=== PATIENT | male | born 1950 ===

== ENCOUNTER 2017-12-24 16:28 | Outpatient (CLI) | payer MEDICARE, OTHER ==
[2017-12-24 16:55] LABS: BASOPHILS % (AUTO) 0.3 %; EOSINOPHILS % (AUTO) 0.2 %; HGB - HEMOGLOBIN 14.2 g/dL (14.0-18.0); LYMPHOCYTES % (AUTO) 16.4 %; MEAN CORPUSCULAR HEMOGLOBIN 29.7 pg (27.0-31.0); MEAN CORPUSCULAR HGB CONC 32.3 g/dL (32.0-36.0); MEAN CORPUSCULAR VOLUME 92.2 fL (80.0-94.0); MEAN PLATELET VOLUME 8.1 fL (7.4-11.4); MONOCYTES % (AUTO) 6.9 %; NEUTROPHILS % (AUTO) 76.2 %; PLT - PLATELET COUNT 291 10^3/uL (130-450); RED BLOOD COUNT 4.79 10^6/uL (4.70-6.10); RED CELL DISTRIBUTION WIDTH 15.8 % (12.0-15.0); WHITE BLOOD COUNT 19.6 x10^3/uL (4.8-10.8)
[2017-12-24 17:06] LABS: ABNORMAL LYMPHS % (MANUAL) 0 %; ALBUMIN 4.1 g/dL (3.2-5.5); ALBUMIN/GLOBULIN RATIO 1.7 (1.0-2.2); BAND NEUTROPHILS % (MANUAL) 0 %; BILIRUBIN,TOTAL 0.8 mg/dL (0.2-1.0); CALCIUM 8.9 mg/dL (8.5-10.3); CREATININE 1.5 mg/dL (0.6-1.2); TOTAL PROTEIN 6.5 g/dL (6.7-8.2)
[2017-12-24 17:25] LABS: EOSINOPHILS # (MANUAL) 0.2 10^3/uL (0-0.7); LYMPHOCYTES # (MANUAL) 1.4 10^3/uL (1.5-3.5); LYMPHOCYTES % (MANUAL) 7 %; MONOCYTES # (MANUAL) 2.2 10^3/uL (0.0-1.0); NEUTROPHILS # (MANUAL) 15.9 10^3/uL (1.5-6.6); NEUTROPHILS % (MANUAL) 81 %
[2017-12-24 17:28] LABS: PLATELET ESTIMATE, MANUAL NORMAL (130-450,000) (NORMAL); PLATELET MORPHOLOGY NORMAL APPEARANCE (NORMAL); RBC MORPHOLOGY (MULTIPLE) NORMAL APPEARANCE (NORMAL)
== END 2017-12-24 16:29 | disposition home or self-care (01) ==
LOC: LAB 16:28
PROVIDERS: ATTEND Dermatology
DX: L88 Pyoderma gangrenosum (principal)
CPT/HCPCS: 36415; 80053; 85025

== ENCOUNTER 2020-08-27 09:54 | Outpatient (CLI) | payer MEDICARE, OTHER ==
--- NOTE | 2020-08-27 18:26 | DEXA Report ---
PROCEDURE: Dexa Spine and/or Hip INDICATIONS: OSTEOPENIA TECHNIQUE: Dual energy x-ray absorptiometry (DXA) was performed on a Glympse System. Regions measur ed are the AP Spine, femoral neck, and if needed forearm. COMPARISON: None. FINDINGS: Lumbar Spine: Bone Mineral Density 1.178 g/cm/cm,T score -0.3, normal Left Hip: Bone Mineral Density 1.143 g/cm/cm,T score 0.3, normal Left Femoral Neck: Bone Mineral Density 0.961 g/cm/cm, T score -0.8, normal (T score greater or equal to -1.0: NORMAL) (T score from -1.1 to -2.4: OSTEOPENIA) (T score less than or equal to -2.5 to: OSTEOPOROSIS) Impression: Normal bone mineral density. Patients with diagnosis of osteoporosis or osteopenia should have regular bone mineral density assess ment. For those eligible for Medicare, routine testing is allowed once every 2 years. Testing frequ ency can be increased for patients who have rapidly progressing disease or for those who are receivin g medical therapy to restore bone mass. Reviewed by: Jesusita Lawson MD, PhD on 08/27/2020 5:25 PM MIRIAM Approved by: Jesusita Lawson MD, PhD on 08/27/2020 5:25 PM MIRIAM Station ID: [id number]
== END 2020-08-27 09:55 | disposition home or self-care (01) ==
LOC: DI 09:54
PROVIDERS: ATTEND Internal Medicine
DX: M85.89 Other specified disorders of bone density and structure, multiple sites (principal)
CPT/HCPCS: 77080

== ENCOUNTER 2022-03-27 10:02 | Day surgery (SDC) | payer MEDICARE, OTHER ==
[2022-03-27] MEDS ORDERED: LACTATED RINGERS 1,000 ML IV ONE (10:06)
[2022-03-27] MEDS ORDERED: PROPOFOL 500 MG/50 ML 500 MG/50 ML VIAL ONE (10:29)
[2022-03-27] MEDS ORDERED: MIDAZOLAM 2 MG/2 ML VIAL ONE (10:32)
--- NOTE | 2022-03-27 10:42 | ANESTHESIA ---
Pre-Anesthesia VS, & Labs - Diagnosis screening exam - Procedure colonoscopy Vital Signs: Temp Pulse Resp BP Pulse Ox 36.6 C 79 16 159/77 H 97 03/27/22 10:12 03/27/22 10:12 03/27/22 10:12 03/27/22 10:12 03/27/22 10:12 Height: 5 ft 8 in Weight (kg): 103.8 kg Body Mass Index: 34.7 BMI Classification: Obese - NPO >8 hours Home Medications and Allergies Home Medications: Ambulatory Orders inFLIXimab [Remicade] 1 vial IV DAILY 03/26/22 Lisinopril 20 mg PO DAILY 03/21/13 Naproxen Sodium [Aleve] 220 mg PO DAILY PRN 10/10/13 Multivitamin [Multi-Vitamin Daily] 1 each PO DAILY 11/16/13 [place]-3 Fatty Acids [Fish Oil] 2 cap PO DAILY 02/04/15 amLODIPine [Norvasc] 10 mg PO DAILY 04/11/21 inFLIXimab [Remicade] 1 vial IV DAILY 03/26/22 Allergies/Adverse Reactions: Allergies Allergy/AdvReac Type Severity Reaction Status Date / Time diphenhydramine AdvReac Anxiety Verified 03/26/22 12:38 Anes History & Medical History - Medical History Cardiovascular: reports: Hypertension Pulmonary: reports: None Gastrointestinal: reports: None Urinary: reports: None Neuro: reports: None Musculoskeletal: reports: Osteoarthritis, Other (pyodermagangrangranosm uses remicade) Endocrine/Autoimmune: reports: None Blood Disorders: reports: None Skin: reports: Other Smoking Status: Never smoker Psychosocial: reports: No issues indicated History of Cancer?: No - Surgical History General: reports: Colonoscopy Exam General: Alert, Oriented x3, Cooperative, No acute distress Dental: WNL, Other (chipped front incissor) Mouth Openin Fingerbreadth Mallampati classification: II Thyromental Distance: 4-6 cm Mental/Cognitive Status: Alert/Oriented X3, Normal for patient Plan Anesthesia Type: General, Total IV Consent for Procedure(s) Verified and Reviewed: Yes Code Status: Attempt Resuscitation ASA classification: 2-Mild systemic disease Is this case an emergency?: No
--- NOTE | 2022-03-27 11:18 | HISTORY & PHYSICAL EXAMINATION ---
Chief Complaint - Chief Complaint Chief Complaint: here for colon cancer screening History of Present Illness - History Obtained From Records Reviewed: yes History obtained from: pt Exam Limitations: none - History of Present Illness HPI Comment/Other: here for colon cancer screening. no problems History - Past Medical History Cardiovascular: reports: Hypertension Respiratory: reports: None Neuro: reports: None Endocrine/Autoimmune: reports: None GI: reports: None : reports: None HEENT: reports: None Musculoskeletal: reports: Osteoarthritis, Other (pyodermagangrangranosm uses remicade) Derm: reports: Other MRSA Hx?: No - Past Surgical History General: reports: Colonoscopy Meds/Allgy - Home Medications Home Medications: Ambulatory Orders Medication Instructions Recorded Confirmed Lisinopril 20 mg PO DAILY 03/21/13 03/26/22 Naproxen Sodium [Aleve] 220 mg PO DAILY PRN 10/10/13 03/26/22 Multivitamin [Multi-Vitamin Daily] 1 each PO DAILY 11/16/13 03/26/22 [place]-3 Fatty Acids [Fish Oil] 2 cap PO DAILY 02/04/15 03/26/22 amLODIPine [Norvasc] 10 mg PO DAILY 04/11/21 03/26/22 inFLIXimab [Remicade] 1 vial IV DAILY 03/26/22 03/26/22 - Allergies Allergies/Adverse Reactions: Allergies Allergy/AdvReac Type Severity Reaction Status Date / Time diphenhydramine AdvReac Anxiety Verified 03/26/22 12:38 Review of Systems - Other Findings Other Findings: 10 pt ros as above otherwise unremarkable Exam - Vital Signs Reviewed Vital Signs: Yes Vital Signs: Vital Signs x48h Temp Pulse Resp BP Pulse Ox 03/27/22 10:12 36.6 C 79 16 159/77 H 97 - Physical Exam General Appearance: positive: No acute distress, Alert Eyes Bilateral: positive: PERRL, EOMI ENT: positive: No signs of dehydration Neck: positive: No JVD Respiratory: positive: No respiratory distress, Breath sounds nml Cardiovascular: positive: Regular rate & rhythm Abdomen: positive: Non-tender, No distention Neurologic/Psychiatric: positive: Oriented x3 Conclusion/Plan - Problem List (1) Colon cancer screening Conclusion/Plan: plan colonoscopy. parq held and consent obtained
[2022-03-27] MEDS ORDERED: LACTATED RINGERS 500 ML IV ONE (12:05)
[2022-03-27 12:34] VITALS: BP 141/85
--- NOTE | 2022-03-27 13:50 | ANESTHESIA POST OP EVALUATION ---
Anesthesia Post Eval - Post Anesthesia Eval Vitals: Last Vital Signs Temp 36.7 C 03/27/22 12:33 Pulse 73 03/27/22 12:33 Resp 20 03/27/22 12:33 BP 141/85 H 03/27/22 12:33 Pulse Ox 99 03/27/22 12:33 CV Function Including HR & BP: Stable Pain Control: Satisfactory Nausea & Vomiting: Negative Mental Status: Baseline Respiratory Status: Airway Patent Hydration Status: Satisfactory Anesthesia Complications: None
== END 2022-03-27 10:03 | disposition home or self-care (01) ==
LOC: SDS 10:02
PROVIDERS: ATTEND Surgery
DX: Z12.11 Encounter for screening for malignant neoplasm of colon (principal); K57.30 Diverticulosis of large intestine without perforation or abscess without bleeding; E66.9 Obesity, unspecified; Z68.34 Body mass index [BMI] 34.0-34.9, adult
CPT/HCPCS: G0121; J7120

== ENCOUNTER 2024-05-27 08:10 | Inpatient (IN) | payer MEDICARE, OTHER ==
--- NOTE | 2024-05-27 08:42 | ED Physician Documentation ---
PD HPI FOCAL NEURO - Stated complaint Stated Complaint: RT SIDE WEAK/NOT WORKING - Chief complaint Chief Complaint: Neuro - History obtained from History obtained from: Patient, Family (spouse) - History of Present Illness Timing - onset: Today (awoke with right arm and leg weakness, was able to limp/to bathroom, leg barely holding him up. Arm fumbly and could not lift it to level of his face.) Timing - details: Abrupt onset, Still present (less severeity on ED arrival, with able to lift arm in air to level of face, leg off the gurney for couple of seconds.) Review of Systems Constitutional: reports: Chills (last evening briefly). denies: Fever Eyes: denies: Loss of vision, Decreased vision Nose: denies: Rhinorrhea / runny nose, Congestion Throat: denies: Sore throat Cardiac: denies: Chest pain / pressure Respiratory: denies: Cough GI: denies: Nausea, Vomiting, Diarrhea Skin: denies: Rash, Lesions Musculoskeletal: reports: Neck pain (left neck last evening.) PD PAST MEDICAL HISTORY - Past Medical History Past Medical History: Yes Cardiovascular: Hypertension Neuro: None Musculoskeletal: Osteoarthritis, Other - Past Surgical History Past Surgical History: No - Present Medications Home Medications: Ambulatory Orders Medication Instructions Recorded Confirmed Naproxen Sodium [Aleve] 220 mg PO DAILY PRN 10/10/13 12/17/22 Multivitamin [Multi-Vitamin Daily] 1 each PO DAILY 11/16/13 12/17/22 amLODIPine [Norvasc] 10 mg PO DAILY 04/11/21 12/17/22 inFLIXimab [Remicade] 1 vial IV MAINTENANCE.IV 03/26/22 12/17/22 Calcium Carb/Mag Ox/Zinc Sulf 1 tab PO DAILY 07/03/22 12/17/22 [[id number] 334-134-5 mg Tab] Cholecalciferol (Vitamin D3) 125 mcg PO DAILY 07/03/22 12/17/22 [D3-5000] Losartan Potassium 50 mg PO DAILY 05/27/24 05/27/24 - Allergies Allergies/Adverse Reactions: Allergies Allergy/AdvReac Type Severity Reaction Status Date / Time diphenhydramine AdvReac Anxiety Verified 05/27/24 08:42 - Social History Does the pt smoke?: No Smoking Status: Never smoker PD ED PE NORMAL - Vitals Vital signs reviewed: Yes - General General: Alert and oriented X 3, Well developed/nourished - HEENT HEENT: Atraumatic - Neck Neck: No bruit - Cardiac Cardiac: RRR, No murmur - Respiratory Respiratory: Clear bilaterally - Abdomen Abdomen: Soft, Non tender - Derm Derm: Normal color, Warm and dry NIHSS - Level of Consciousness Level of consciousness: (0) Alert, Keenly responsive LOC Questions: (0) Answers both Q's correct LOC Commands: (0) Performs both correctly - Gaze Best Gaze: (0) Normal - Visual Visual: (0) No loss - Facial Palsy Facial Palsy: (0) Normal, symmetrical movement - Motor Arms (both separate) Motor Arm (right): (1) Drift Motor Arm (left): (0) No drift - Motor Legs (both separate) Motor Leg (right): (2) Some effort against gravity Motor Leg (left): (0) No drift - Limb Ataxia Limb Ataxia: (2) Present in 2 limbs - Sensory Sensory: (0) Normal - Best Language Best Language: (0) No aphasia - Dysarthria Dysarthria: (0) Normal - Extinction and Inattention (formally neg Extinction and inattention: (0) No abnormality - Total Score/Results Total Score/Result: 5 Results - Vitals Vitals: Vital Signs - 24 hr 05/27/24 05/27/24 05/27/24 08:19 09:05 09:30 Temperature 36.3 C L Heart Rate 107 H 101 H 100 Respiratory 16 22 21 Rate Blood Pressure 150/84 H 132/92 H 135/82 H O2 Saturation 97 95 97 05/27/24 10:00 Temperature Heart Rate 94 Respiratory 20 Rate Blood Pressure 124/79 O2 Saturation 98 Oxygen O2 Source Room air - EKG (time done) 08:32 EKG releavant findings:: EKG personally interpreted by author of this note. Relevant findings are: Rate: Rate (enter#) (100) Rhythm: NSR [place]: Normal Intervals: Normal DE, RBBB Ischemia: Normal ST segments. No: ST elevation c/w ischemia, ST depression - Labs Labs: Laboratory Tests 05/27/24 05/27/24 05/27/24 08:30 08:30 08:30 WBC 20.6 H RBC 5.55 Hgb 16.7 Hct 50.5 MCV 91.0 MCH 30.1 MCHC 33.1 RDW 13.2 Plt Count 158 MPV 12.6 H Neut # (Auto) 18.2 H Lymph # (Auto) 1.0 L [place] # (Auto) 1.2 H Eos # (Auto) 0.0 Baso # (Auto) 0.1 Absolute Nucleated RBC 0.00 Nucleated RBC % 0.0 Manual Slide Review Indicated RBC Morph Micro Appear 1+ ANISOCYTOSIS PT 12.2 INR 1.1 Sodium 134 L Potassium 4.1 Chloride 102 Carbon Dioxide 24 Anion Gap 8.0 BUN 17 Creatinine 1.2 Estimated GFR (MDRD) 59 L Glucose 144 H Calcium 9.6 Magnesium 1.8 Total Bilirubin 1.2 H AST 21 ALT 22 Alkaline Phosphatase 51 Total Protein 7.3 Albumin 4.5 Globulin 2.8 Albumin/Globulin Ratio 1.6 Lipase 15 Nasal Adenovirus (PCR) Nasal B. parapertussis DNA (PCR) Nasal Coronavir 229E PCR Nasal Coronavir HKU1 PCR Nasal Coronavir NL63 PCR Nasal Coronavir OC43 PCR Nasal Enterovir/Rhinovir PCR Nasal Influenza B PCR Nasal Influenza A PCR Nasal Parainfluen 1 PCR Nasal Parainfluen 2 PCR Nasal Parainfluen 3 PCR Nasal Parainfluen 4 PCR Nasal RSV (PCR) Nasal B.pertussis DNA PCR Nasal C.pneumoniae (PCR) Dc Human Metapneumo PCR Nasal M.pneumoniae (PCR) Nasal SARS-CoV-2 (PCR) 05/27/24 09:09 WBC RBC Hgb Hct MCV MCH MCHC RDW Plt Count MPV Neut # (Auto) Lymph # (Auto) [place] # (Auto) Eos # (Auto) Baso # (Auto) Absolute Nucleated RBC Nucleated RBC % Manual Slide Review RBC Morph Micro Appear PT INR Sodium Potassium Chloride Carbon Dioxide Anion Gap BUN Creatinine Estimated GFR (MDRD) Glucose Calcium Magnesium Total Bilirubin AST ALT Alkaline Phosphatase Total Protein Albumin Globulin Albumin/Globulin Ratio Lipase Nasal Adenovirus (PCR) NOT DETECTED Nasal B. parapertussis DNA (PCR) NOT DETECTED Nasal Coronavir 229E PCR NOT DETECTED Nasal Coronavir HKU1 PCR NOT DETECTED Nasal Coronavir NL63 PCR NOT DETECTED Nasal Coronavir OC43 PCR NOT DETECTED Nasal Enterovir/Rhinovir PCR NOT DETECTED Nasal Influenza B PCR NOT DETECTED Nasal Influenza A PCR NOT DETECTED Nasal Parainfluen 1 PCR NOT DETECTED Nasal Parainfluen 2 PCR NOT DETECTED Nasal Parainfluen 3 PCR NOT DETECTED Nasal Parainfluen 4 PCR NOT DETECTED Nasal RSV (PCR) NOT DETECTED Nasal B.pertussis DNA PCR NOT DETECTED Nasal C.pneumoniae (PCR) NOT DETECTED Dc Human Metapneumo PCR NOT DETECTED Nasal M.pneumoniae (PCR) NOT DETECTED Nasal SARS-CoV-2 (PCR) NOT DETECTED - Rads (name of study) head CT/CT-A Relevant Findings:: Prelim report reviewed, Discussed with rads (no ICH nor mass effect. Angio showing stenosis right 60% ICA, 90% left ICA. left vertebral presu med occluded as not visualized, right patent. Posterior circulation appears okay above [place]. ) PD Medical Decision Making - ED course Complexity details: reviewed results (acute CT head without acute findings. Angio showing 90% stenosis left ICA, 60% right. Left vertebral artery occluded, unknown chronicity. Posterior flow good through [place]. ), re- evaluated patient (he is having some improvement in degree of weakness in right side but still present. Given duration of symptoms at least 4-5 hours, presume l ikely true CVA and not TIA. BP is in okay range. After review of the CT/CTA, I did give pt Aspirin and Plavix and Atorvastatin. ), considered differential (awoke at 6 am with noting right side arm and leg weakness without numbness, and no facial weakness. Able to talk clearly. No visual change. ), d/w patient, d/w senior staff consultant (Telestroke neurologist: refer to his note. He states the patient is not TNK candidate due to timing of "wake up" symptoms, so too long prior. And no LVO so not interventional acutely. There is 90% stenosis, which will want Vascular Surgery referral urgently (within 1-2 weeks). ), other (discussed with hospitalist who will admit the patient. ) Departure - Departure Disposition: 66 [facility] DC/Xfer Clinical Impression: Right sided weakness, Carotid stenosis, left Condition: Stable Record reviewed to determine appropriate education?: Yes Discharge Date/Time: 05/27/24 11:47
--- NOTE | 2024-05-27 08:55 | CT Report ---
PROCEDURE: Head W/O Stroke Protocol INDICATIONS: right weakness awoke this morning TECHNIQUE: Noncontrast 4.5 mm thick angled axial sections acquired from the foramen magnum to the vertex, with c oronal reformats. For radiation dose reduction, the following was used: automated exposure control, adjustment of mA and/or kV according to patient size. COMPARISON: None. FINDINGS: Image quality: Excellent. CSF spaces: Basal cisterns are patent. No extra-axial fluid collections. Ventricles are normal in size and shape. Brain: No midline shift. No intracranial masses or hemorrhage. Gordon-white matter interface is norm al. Skull and face: Calvarium and visualized facial bones are intact, without suspicious lesions. Sinuses: Visualized sinuses and mastoids are clear. IMPRESSION: No acute intracranial pathology. No contraindication Findings were discussed with ordering provider on 05/27/2024 at 8:51 AM. This study fulfills neurological imaging criteria for inclusion or exclusion of acute stroke therapie s based on available published neurological imaging guidelines. Reviewed by: Leonard Brady MD on 05/27/2024 8:54 AM PDT Approved by: Leonard Brady MD on 05/27/2024 8:54 AM PDT Station ID: [id number]
[2024-05-27 09:04] LABS: BASOPHILS # (AUTO) 0.1 10^3/uL (0.0-0.1); BASOPHILS % (AUTO) 0.3 %; HCT - HEMATOCRIT 50.5 % (42.0-52.0); HGB - HEMOGLOBIN 16.7 g/dL (14.0-18.0); LYMPHOCYTES % (AUTO) 4.7 %; MEAN CORPUSCULAR HEMOGLOBIN 30.1 pg (27.0-31.0); MEAN CORPUSCULAR HGB CONC 33.1 g/dL (32.0-36.0); MEAN PLATELET VOLUME 12.6 fL (7.4-11.4); MONOCYTES # (AUTO) 1.2 10^3/uL (0.0-1.0); MONOCYTES % (AUTO) 5.9 %; NEUTROPHILS # (AUTO) 18.2 10^3/uL (1.5-6.6); NEUTROPHILS % (AUTO) 88.7 %; PLT - PLATELET COUNT 158 10^3/uL (130-450); RED BLOOD COUNT 5.55 10^6/uL (4.70-6.10); RED CELL DISTRIBUTION WIDTH 13.2 % (12.0-15.0); WHITE BLOOD COUNT 20.6 x10^3/uL (4.8-10.8)
[2024-05-27] MEDS ORDERED: iohexoL-300 100 ML VIAL ONE (09:07)
[2024-05-27 09:10] LABS: SLIDE REVIEW? Indicated
[2024-05-27 09:13] LABS: INR 1.1 (0.8-1.2); PT - PROTHROMBIN TIME 12.2 secs (9.9-12.6)
--- NOTE | 2024-05-27 09:22 | CT Report ---
PROCEDURE: Angio Head/Neck INDICATIONS: right weakness awoke this morning TECHNIQUE: After the administration of intravenous contrast, 1 mm thick sections acquired from the aortic arch t hrough the [place]. 3-dimensional wjmvdwt-lsukycatu-ovevxpkwfv (MIP) and/or volume renderin g reformats were acquired of the central intracranial vasculature and neck separately. For radiation dose reduction, the following was used: automated exposure control, adjustment of mA and/or kV acco rding to patient size. CONTRAST: 80ml omni 300 COMPARISON: None. FINDINGS: Image quality: Diagnostic. HEAD CT: CSF Spaces: Basal cisterns are patent. No extra-axial fluid collections. Ventricles are normal in size and shape. Brain: No significant abnormality is seen for scanning technique. Skull and face: Calvarium and visualized facial bones appear intact, without suspicious lesions. Sinuses: Visualized sinuses and mastoids are clear. HEAD CT ANGIOGRAPHY: Anterior circulation: Intracranial internal carotid arteries are normal in size and flow. The flow within the paired anterior cerebral arteries is normal and symmetric. The flow within the middle cer ebral arteries is normal and symmetric. The anterior communicating artery is seen. No aneurysms are seen. Posterior circulation: Visualized portions of the right distal vertebral artery is within normal brito its and form a normal appearing basilar artery. Flow within the posterior cerebral arteries is gareth l and symmetric. No aneurysms are seen. NECK CT ANGIOGRAPHY: Carotid system: The great vessels demonstrate a conventional anatomy as they arise from the aortic a rch. The origins of the common carotid arteries appear patent. The common carotid arteries demonstr ate normal caliber and courses. Moderate atherosclerotic calcifications are noted involving bilateral carotid bifurcations and origins of bilateral internal carotid arteries with high-grade near 90% patricia nosis involving origin of left internal carotid artery and 60% stenosis involving proximal right inte rnal carotid artery. Posterior circulation: The origin of right vertebral artery appears patent. There is suggestion of oc clusion of left internal carotid artery at its origin with nonvisualization of normal left vertebral artery. The more superior extracranial portions of right vertebral artery also demonstrate normal cou rses and calibers. There is a normal appearing basilar artery. Soft tissues: Visualized neck soft tissues demonstrate no suspicious abnormalities. Bones: No suspicious bony lesions. Visualized cervical spine appears normally aligned. IMPRESSION: 1. No hemodynamically significant stenosis or aneurysm is seen in the intracranial circulation. 2. Moderate atherosclerotic disease involving bilateral carotid bifurcation and proximal internal car otid arteries with near 90% stenosis involving origin of left internal carotid artery and 60% stenosi s involving proximal right internal carotid artery. 3. Suggestion of occlusion of left vertebral artery at its origin with patent and normal-appearing ri ght vertebral artery. The estimate of stenosis included in the report of the imaging study was calculated using the NASCET method Reviewed by: Leonard Brady MD on 05/27/2024 9:21 AM PDT Approved by: Leonard Brady MD on 05/27/2024 9:21 AM PDT Station ID: [id number]
[2024-05-27 09:23] LABS: ALBUMIN 4.5 g/dL (3.2-5.5); ALBUMIN/GLOBULIN RATIO 1.6 (1.0-2.2); BILIRUBIN,TOTAL 1.2 mg/dL (0.2-1.0); CALCIUM 9.6 mg/dL (8.5-10.3); CREATININE 1.2 mg/dL (0.6-1.3); MAGNESIUM 1.8 mg/dL (1.7-2.3); POTASSIUM 4.1 mmol/L (3.5-4.5); TOTAL PROTEIN 7.3 g/dL (6.4-8.9)
[2024-05-27] MEDS: ASPIRIN CHEW 81 MG TABLET PO STA (09:41)
[2024-05-27 09:50] LABS: RBC MORPHOLOGY (MULTIPLE) 1+ ANISOCYTOSIS (NORMAL)
[2024-05-27 10:19] LABS: B. PARAPERTUSSIS- RESP PCR PAN NOT DETECTED; B. PERTUSSIS- RESP PCR PANEL NOT DETECTED; C. PNEUMONIAE- RESP PCR PANEL NOT DETECTED; CORONAVIRUS 229E-RESP PCR NOT DETECTED; CORONAVIRUS HKU1-RESP PCR NOT DETECTED; CORONAVIRUS NL63-RESP PCR NOT DETECTED; CORONAVIRUS OC43-RESP PCR NOT DETECTED; HUMAN METAPNEUMOVIRUS NOT DETECTED; INFLUENZA A- RESP PCR PANEL NOT DETECTED; INFLUENZA B - RESP PCR PANEL NOT DETECTED; M. PNEUMONIAE- RESP PCR PANEL NOT DETECTED; PARAINFLUENZA VIRUS 1 NOT DETECTED; PARAINFLUENZA VIRUS 2 NOT DETECTED; PARAINFLUENZA VIRUS 3 NOT DETECTED; PARAINFLUENZA VIRUS 4 NOT DETECTED; RHINOVIRUS/ENTEROVIRUS NOT DETECTED; RSV- RESP PCR PANEL NOT DETECTED; SARS-CoV-2 -RESP PCR PANEL NOT DETECTED
[2024-05-27] MEDS: CLOPIDOGREL 300 MG TABLET PO STA (10:31)
[2024-05-27] MEDS: ATORVASTATIN 40 MG TABLET PO STA (11:08)
[2024-05-27] MEDS ORDERED: ONDANSETRON 4 MG/2 ML VIAL IVP PRN (11:15)
[2024-05-27] MEDS ORDERED: SODIUM CHLORIDE FLUSH 0.9% 10 ML SYRINGE IVP PRN (11:15)
[2024-05-27] MEDS ORDERED: ONDANSETRON ODT 4 MG TABLET TL PRN (11:15)
[2024-05-27 14:29] LABS: BILIRUBIN,URINE NEGATIVE (NEGATIVE); GLUCOSE, URINE (UA) NEGATIVE (NEGATIVE); KETONES,URINE (UA) TRACE mg/dL (NEGATIVE); LEUKOCYTE ESTERASE, URINE NEGATIVE (NEGATIVE); NITRITE,URINE NEGATIVE (NEGATIVE); OCCULT BLOOD,URINE NEGATIVE (NEGATIVE); PROTEIN,URINE NEGATIVE (NEGATIVE); UROBILINOGEN,URINE 0.2 (NORMAL) E.U./dL (NORMAL)
[2024-05-27 14:43] LABS: CLARITY,URINE CLEAR (CLEAR)
--- NOTE | 2024-05-27 16:53 | MRI Report ---
PROCEDURE: Brain WO INDICATIONS: CVA TECHNIQUE: Noncontrast axial T1 spin echo, axial T2 fast spin echo, sagittal and axial FLAIR, coronal T2 fast sp in echo, axial gradient echo, axial diffusion and ADC through the brain. COMPARISON: Correlation is made with the accompanying imaging. FINDINGS: Image quality: Excellent. CSF Spaces: Basal cisterns are patent. No extra-axial fluid collections. Ventricles are normal in size and shape. Brain: There is a 7 mm focus of abnormal diffusion-weighted signal can be seen within the deep white matter of the left frontal lobe, as on series 12 image 42. There is associated dark signal seen on th e ADC map. Mild developing T2-weighted hyperintensity can be seen at this site. No enid hemorrhage c an be seen at this site. No intracranial masses or hemorrhage. Gordon/white matter interface is normal. Brainstem appears norm al. No chronic ischemic insults. Normal intravascular flow voids are present. Age-appropriate brai n parenchymal volume loss and chronic small vessel ischemic change can be seen. Skull and face: Calvarium has normal marrow signal. Orbits appear normal. Sinuses: Sinuses and mastoids are clear. IMPRESSION: 7 mm acute/subacute infarction seen involving the deep white matter of the left frontal lobe. Reviewed by: Tacho Avery MD on 05/27/2024 3:52 PM MIRIAM Approved by: Tacho Avery MD on 05/27/2024 3:52 PM MIRIAM Station ID: [id number]
[2024-05-27] MEDS: iohexoL-300 100 ML VIAL IVP ONE (17:49)
--- NOTE | 2024-05-27 17:52 | HISTORY & PHYSICAL EXAMINATION ---
Chief Complaint - Chief Complaint Chief Complaint: Right sided weakness History of Present Illness - History of Present Illness HPI Comment/Other: Patient is a 73-year-old male with a past medical history of pyogenic gangrenosum, hypertension who presented to the ED due to right upper and lower extremity weakness and possible facial droop. A CT/CTA was performed which showed evidence of moderate atherosclerotic disease on the bilateral carotid bifurcation and proximal ICA with 90% stenosis of the left and 60% stenosis of the right. This was reviewed by neurology who recommended against tPA and stated that patient will need outpatient follow-up with vascular surgery. They recommended dual antiplatelet therapy. During my evaluation patient stated that his left leg weakness was improving however he continues to have right arm flaccid paralysis. Patient denies any history of cardiac or pulmonary disease. He is a non-smoker. He stated he is a full code. He is on infliximab every 8 weeks for his pyogenic gangrenosum. 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 Meds/Allgy - Home Medications Home Medications: Ambulatory Orders Medication Instructions Recorded Confirmed Naproxen Sodium [Aleve] 220 mg PO DAILY PRN 10/10/13 12/17/22 Multivitamin [Multi-Vitamin Daily] 1 each PO DAILY 11/16/13 12/17/22 amLODIPine [Norvasc] 10 mg PO DAILY 04/11/21 12/17/22 inFLIXimab [Remicade] 1 vial IV MAINTENANCE.IV 03/26/22 12/17/22 Calcium Carb/Mag Ox/Zinc Sulf 1 tab PO DAILY 07/03/22 12/17/22 [[id number] 334-134-5 mg Tab] Cholecalciferol (Vitamin D3) 125 mcg PO DAILY 07/03/22 12/17/22 [D3-5000] Losartan Potassium 50 mg PO DAILY 05/27/24 05/27/24 - Allergies Allergies/Adverse Reactions: Allergies Allergy/AdvReac Type Severity Reaction Status Date / Time diphenhydramine AdvReac Anxiety Verified 05/27/24 08:42 Review of Systems - Neurological Neurological: reports: Focal weakness - All Other Systems All Other Systems: reports: Reviewed and negative Exam - Vital Signs Vital Signs: Vital Signs x48h Temp Pulse Pulse Pulse Resp BP BP 05/27/24 16:55 98.0 C H 91 24 129/78 05/27/24 11:55 37.1 C 87 20 152/77 H 05/27/24 10:00 94 20 124/79 Pulse Ox 05/27/24 16:55 95 05/27/24 11:55 97 05/27/24 10:00 98 - Physical Exam General Appearance: positive: No acute distress, Alert Respiratory: positive: Chest non-tender, No respiratory distress, Breath sounds nml Cardiovascular: positive: Regular rate & rhythm, No murmur, No gallop Abdomen: positive: Non-tender, No organomegaly, Nml bowel sounds, No distention Neurologic/Psychiatric: positive: Other (Right arm strength 0/5.) Conclusion/Plan - Problem List (1) Right sided weakness Conclusion/Plan: --Start on DAPT with ASA/Plavix. --High intensity statin with Atorvastatin 40 mg daily. --MRI pending. 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 Patient will need an outpatient referral to vascular surgery. --PT/OT consulted. --TTE on Wednesday. (2) Hypertension Conclusion/Plan: --Continue amlodipine and losartan in the morning. - Lab Results Fish Bones: 05/27/24 08:30 05/27/24 08:30
[2024-05-27] MEDS: SODIUM CHLORIDE FLUSH 0.9% 10 ML SYRINGE IVP SCH (19:29)
[2024-05-27] MEDS: ACETAMINOPHEN 325 MG TABLET PO PRN (22:04)
[2024-05-28 05:33] LABS: BASOPHILS % (AUTO) 0.2 %; HCT - HEMATOCRIT 46.4 % (42.0-52.0); HGB - HEMOGLOBIN 15.6 g/dL (14.0-18.0); LYMPHOCYTES # (AUTO) 0.4 10^3/uL (1.5-3.5); LYMPHOCYTES % (AUTO) 3.4 %; MEAN CORPUSCULAR HEMOGLOBIN 30.2 pg (27.0-31.0); MEAN CORPUSCULAR HGB CONC 33.6 g/dL (32.0-36.0); MEAN CORPUSCULAR VOLUME 89.9 fL (80.0-94.0); MEAN PLATELET VOLUME 11.5 fL (7.4-11.4); MONOCYTES # (AUTO) 1.2 10^3/uL (0.0-1.0); NEUTROPHILS # (AUTO) 10.1 10^3/uL (1.5-6.6); NEUTROPHILS % (AUTO) 86.2 %; PLT - PLATELET COUNT 163 10^3/uL (130-450); RED BLOOD COUNT 5.16 10^6/uL (4.70-6.10); RED CELL DISTRIBUTION WIDTH 13.2 % (12.0-15.0); WHITE BLOOD COUNT 11.7 x10^3/uL (4.8-10.8)
[2024-05-28 05:57] LABS: BUN - BLOOD UREA NITROGEN 13 mg/dL (6-20); CALCIUM 9.1 mg/dL (8.5-10.3); CARBON DIOXIDE - CO2 22 mmol/L (21-32); CHLORIDE 101 mmol/L (101-111); CHOL/HDL RATIO 3.1 (<5.0); CHOLESTEROL 102 mg/dL; GFR - MDRD 73 (>89); GLUCOSE 156 mg/dL (74-104); HDL CHOLESTEROL 33 mg/dL; LDL CHOLESTEROL,CALCULATED 50 mg/dL; LDL/HDL RATIO 1.5 (<3.6); POTASSIUM 3.7 mmol/L (3.5-4.5); SODIUM 131 mmol/L (135-145); TRIGLYCERIDES 93 mg/dL; VLDL CHOLESTEROL 19 mg/dL
[2024-05-28] MEDS: ASPIRIN 325 MG TABLET PO SCH (09:29)
[2024-05-28] MEDS: ENOXAPARIN 40 MG/0.4 ML SYRINGE SUBQ SCH (09:29)
[2024-05-28] MEDS: ATORVASTATIN 40 MG TABLET PO SCH (09:30)
[2024-05-28] MEDS: CLOPIDOGREL 75 MG TABLET PO SCH (09:30)
--- NOTE | 2024-05-28 12:18 | PROVIDER PROGRESS NOTE ---
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 --Start on DAPT with ASA/Plavix. --High intensity statin with Atorvastatin 40 mg daily. --MRI showing left frontal stroke. 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 Patient will need an outpatient referral to vascular surgery. --PT/OT consulted. --TTE on Wednesday. --Leukocytosis downtrended, likely reactive from CVA. (2) Hypertension Conclusion/Plan: --Continue amlodipine and losartan in the morning. - Current Meds Current Meds: Current Medications Generic Name Dose Route Start Last Admin Trade Name Freq PRN Reason Stop Dose Admin Acetaminophen 650 mg 05/27/24 11:15 05/27/24 22:04 Acetaminophen 325 Mg Tablet PO 650 mg Q4HR PRN Administration Pain 1 to 4, or Fever Aspirin 81 mg 05/28/24 09:00 05/28/24 09:29 Aspirin 325 Mg Tablet PO 81 mg DAILY AURELIANO Administration Atorvastatin Calcium 40 mg 05/28/24 09:00 05/28/24 09:30 Atorvastatin 40 Mg Tablet PO 40 mg DAILY AURELIANO Administration Clopidogrel Bisulfate 75 mg 05/28/24 09:00 05/28/24 09:30 Clopidogrel 75 Mg Tablet PO 75 mg DAILY AURELIANO Administration Enoxaparin Sodium 40 mg 05/28/24 09:00 05/28/24 09:29 Enoxaparin 40 Mg/0.4 Ml Syringe SUBQ 40 mg DAILY AURELIANO Administration Sodium Chloride 10 ml 05/27/24 17:00 05/28/24 09:29 Sodium Chloride Flush 0.9% 10 Ml Syringe IVP 10 ml 0100,0900,1700 AURELIANO Administration - Lab Result Fish Bone Diagrams: 05/28/24 04:35 05/28/24 04:35 - Additional Planning My Orders: My Active Orders 05/27/24 11:25 Echo Transthoracic Complete [ECHO] Stat 05/27/24 13:53 Blood Culture [CULTURE, BLOOD #1] [RM] Routine Blood Culture [CULTURE, BLOOD #2] [RM] Routine 05/27/24 Dinner Regular Diet [DIET] 05/27/24 17:00 Sodium Chloride Flush 0.9% [Normal Saline Flush 0.9%] 10 ml IVP 0100,0900,1700 05/28/24 09:00 Aspirin [Dolly] 81 mg PO DAILY Atorvastatin [Lipitor] 40 mg PO DAILY Clopidogrel [Plavix] 75 mg PO DAILY Enoxaparin [Lovenox] 40 mg SUBQ DAILY 05/29/24 05:00 BMP - BASIC METABOLIC PANEL [CHEM] DAILYLAB CBC [CBC - COMP BLD CT W/AUTO DIFF] [HEME] DAILYLAB 05/30/24 05:00 BMP - BASIC METABOLIC PANEL [CHEM] DAILYLAB CBC [CBC - COMP BLD CT W/AUTO DIFF] [HEME] DAILYLAB 05/31/24 05:00 BMP - BASIC METABOLIC PANEL [CHEM] DAILYLAB CBC [CBC - COMP BLD CT W/AUTO DIFF] [HEME] DAILYLAB 06/01/24 05:00 BMP - BASIC METABOLIC PANEL [CHEM] DAILYLAB CBC [CBC - COMP BLD CT W/AUTO DIFF] [HEME] DAILYLAB Subjective - Subjective Patient Reports: Feeling Better, Resting Comfortably, No Complaints, Other (Sat in chair today. Continues to have right arm weakness.) Objective Vital Signs: Vital Signs - 24 hr 05/27/24 05/27/24 05/27/24 16:55 21:48 22:34 Temperature 98.0 C H 38.1 C H 37.2 C Heart Rate [ 91 100 Brachial] Respiratory 24 24 Rate Blood Pressure 129/78 150/85 H [Right Brachial artery] O2 Saturation 95 95 05/27/24 05/28/24 05/28/24 23:49 05:25 07:31 Temperature 37.2 C 37.3 C 37.2 C Heart Rate [ 100 89 Brachial] Respiratory 16 22 20 Rate Blood Pressure 152/84 H 127/75 [Right Brachial artery] O2 Saturation Oxygen O2 Source Room air I&O (Last 24 Hrs): Intake and Output Totals x24h 05/26/24 05/27/24 05/28/24 23:59 23:59 23:59 Intake Total 1070 960 Output Total 820 1700 Balance 250 -740 General: Alert, Oriented x3, Cooperative, No acute distress Neuro: Alert, Oriented Times 3, Other (Unchanged from yesterday. 0/5 strenght in RUE.) Cardiovascular: Regular rate, Normal S1, Normal S2, No murmurs Respiratory: Chest non-tender, No respiratory distress, Breath sounds nml Abdomen: Normal bowel sounds, Soft, No tenderness, No hepatospenomegaly, No masses - Results Results: Laboratory Results WBC 11.7 x10^3/uL (4.8-10.8) H 05/28/24 04:35 RBC 5.16 10^6/uL (4.70-6.10) 05/28/24 04:35 Hgb 15.6 g/dL (14.0-18.0) 05/28/24 04:35 Hct 46.4 % (42.0-52.0) 05/28/24 04:35 MCV 89.9 fL (80.0-94.0) 05/28/24 04:35 MCH 30.2 pg (27.0-31.0) 05/28/24 04:35 MCHC 33.6 g/dL (32.0-36.0) 05/28/24 04:35 RDW 13.2 % (12.0-15.0) 05/28/24 04:35 Plt Count 163 10^3/uL (130-450) 05/28/24 04:35 MPV 11.5 fL (7.4-11.4) H 05/28/24 04:35 Neut # (Auto) 10.1 10^3/uL (1.5-6.6) H 05/28/24 04:35 Lymph # (Auto) 0.4 10^3/uL (1.5-3.5) L 05/28/24 04:35 [place] # (Auto) 1.2 10^3/uL (0.0-1.0) H 05/28/24 04:35 Eos # (Auto) 0.0 10^3/uL (0.0-0.7) 05/28/24 04:35 Baso # (Auto) 0.0 10^3/uL (0.0-0.1) 05/28/24 04:35 Absolute Nucleated RBC 0.00 x10^3/uL 05/28/24 04:35 Nucleated RBC % 0.0 /100WBC 05/28/24 04:35 Manual Slide Review Indicated 05/27/24 08:30 RBC Morph Micro Appear 1+ ANISOCYTOSIS (NORMAL) 05/27/24 08:30 PT 12.2 secs (9.9-12.6) 05/27/24 08:30 INR 1.1 (0.8-1.2) 05/27/24 08:30 Sodium 131 mmol/L (135-145) L 05/28/24 04:35 Potassium 3.7 mmol/L (3.5-4.5) 05/28/24 04:35 Chloride 101 mmol/L (101-111) 05/28/24 04:35 Carbon Dioxide 22 mmol/L (21-32) 05/28/24 04:35 Anion Gap 8.0 (6-13) 05/28/24 04:35 BUN 13 mg/dL (6-20) 05/28/24 04:35 Creatinine 1.0 mg/dL (0.6-1.3) 05/28/24 04:35 Estimated GFR (MDRD) 73 (>89) L 05/28/24 04:35 Glucose 156 mg/dL (74-104) H 05/28/24 04:35 Calcium 9.1 mg/dL (8.5-10.3) 05/28/24 04:35 Magnesium 1.8 mg/dL (1.7-2.3) 05/27/24 08:30 Total Bilirubin 1.2 mg/dL (0.2-1.0) H 05/27/24 08:30 AST 21 IU/L (10-42) 05/27/24 08:30 ALT 22 IU/L (10-60) 05/27/24 08:30 Alkaline Phosphatase 51 IU/L (42-121) 05/27/24 08:30 Total Protein 7.3 g/dL (6.4-8.9) 05/27/24 08:30 Albumin 4.5 g/dL (3.2-5.5) 05/27/24 08:30 Globulin 2.8 g/dL (2.1-4.2) 05/27/24 08:30 Albumin/Globulin Ratio 1.6 (1.0-2.2) 05/27/24 08:30 Triglycerides 93 mg/dL 05/28/24 04:35 Cholesterol 102 mg/dL (-200) 05/28/24 04:35 LDL Cholesterol, Calc 50 mg/dL (-129) 05/28/24 04:35 VLDL Cholesterol 19 mg/dL 05/28/24 04:35 HDL Cholesterol 33 mg/dL (60-) L 05/28/24 04:35 LDL/HDL Ratio 1.5 (<3.6) 05/28/24 04:35 Cholesterol/HDL Ratio 3.1 (<5.0) 05/28/24 04:35 Lipase 15 U/L (11-82) 05/27/24 08:30 Urine Color DARK YELLOW 05/27/24 13:45 Urine Clarity CLEAR (CLEAR) 05/27/24 13:45 Urine pH 7.0 PH (5.0-7.5) 05/27/24 13:45 Ur Specific [place] 1.010 (1.002-1.030) 05/27/24 13:45 Urine Protein NEGATIVE mg/dL (NEGATIVE) 05/27/24 13:45 Urine Glucose (UA) NEGATIVE mg/dL (NEGATIVE) 05/27/24 13:45 Urine Ketones TRACE mg/dL (NEGATIVE) 05/27/24 13:45 Urine Occult Blood NEGATIVE (NEGATIVE) 05/27/24 13:45 Urine Nitrite NEGATIVE (NEGATIVE) 05/27/24 13:45 Urine Bilirubin NEGATIVE (NEGATIVE) 05/27/24 13:45 Urine Urobilinogen 0.2 (NORMAL) E.U./dL (NORMAL) 05/27/24 13:45 Ur Leukocyte Esterase NEGATIVE (NEGATIVE) 05/27/24 13:45 Ur Microscopic Review NOT INDICATED 05/27/24 13:45 Urine Culture Comments NOT INDICATED 05/27/24 13:45 Nasal Adenovirus (PCR) NOT DETECTED 05/27/24 09:09 Nasal B. parapertussis DNA (PCR) NOT DETECTED 05/27/24 09:09 Nasal Coronavir 229E PCR NOT DETECTED 05/27/24 09:09 Nasal Coronavir HKU1 PCR NOT DETECTED 05/27/24 09:09 Nasal Coronavir NL63 PCR NOT DETECTED 05/27/24 09:09 Nasal Coronavir OC43 PCR NOT DETECTED 05/27/24 09:09 Nasal Enterovir/Rhinovir PCR NOT DETECTED 05/27/24 09:09 Nasal Influenza B PCR NOT DETECTED 05/27/24 09:09 Nasal Influenza A PCR NOT DETECTED 05/27/24 09:09 Nasal Parainfluen 1 PCR NOT DETECTED 05/27/24 09:09 Nasal Parainfluen 2 PCR NOT DETECTED 05/27/24 09:09 Nasal Parainfluen 3 PCR NOT DETECTED 05/27/24 09:09 Nasal Parainfluen 4 PCR NOT DETECTED 05/27/24 09:09 Nasal RSV (PCR) NOT DETECTED 05/27/24 09:09 Nasal B.pertussis DNA PCR NOT DETECTED 05/27/24 09:09 Nasal C.pneumoniae (PCR) NOT DETECTED 05/27/24 09:09 Dc Human Metapneumo PCR NOT DETECTED 05/27/24 09:09 Nasal M.pneumoniae (PCR) NOT DETECTED 05/27/24 09:09 Nasal SARS-CoV-2 (PCR) NOT DETECTED 05/27/24 09:09
--- NOTE | 2024-05-28 13:30 | PHARMACY PROGRESS NOTE ---
- Best Possible Medication History Admit Date and Time: 05/27/24 1115 Processed by: Pharmacy Medication History completed: Yes Patient Interview: Completed Secondary Source(s): Spouse/Significant other, Insurance records As the person ultimately responsible for medication therapy, providers are able to order a medication from an existing home medication list in [facility] via the "Reconcile Routine" prior to Confirmation of that medication by senior administrative support. Such practice is discouraged except when the physician, in their clinical judgment, deems that a medical need exists for a medication without regard to previous use.
[2024-05-28 19:55] LABS: ESTIMATED AVERAGE GLUCOSE 131 mg/dL (70-100); HEMOGLOBIN A1c% 6.2 % (4.27-6.07)
[2024-05-29 05:38] LABS: BASOPHILS % (AUTO) 0.4 %; HCT - HEMATOCRIT 46.1 % (42.0-52.0); HGB - HEMOGLOBIN 15.8 g/dL (14.0-18.0); LYMPHOCYTES # (AUTO) 0.7 10^3/uL (1.5-3.5); LYMPHOCYTES % (AUTO) 11.5 %; MEAN CORPUSCULAR HEMOGLOBIN 30.4 pg (27.0-31.0); MEAN CORPUSCULAR HGB CONC 34.3 g/dL (32.0-36.0); MEAN CORPUSCULAR VOLUME 88.8 fL (80.0-94.0); MONOCYTES # (AUTO) 0.9 10^3/uL (0.0-1.0); MONOCYTES % (AUTO) 15.2 %; NEUTROPHILS # (AUTO) 4.1 10^3/uL (1.5-6.6); NEUTROPHILS % (AUTO) 72.7 %; PLT - PLATELET COUNT 162 10^3/uL (130-450); RED BLOOD COUNT 5.19 10^6/uL (4.70-6.10); RED CELL DISTRIBUTION WIDTH 13.1 % (12.0-15.0); WHITE BLOOD COUNT 5.6 x10^3/uL (4.8-10.8)
[2024-05-29 05:57] LABS: CALCIUM 8.8 mg/dL (8.5-10.3); CREATININE 0.9 mg/dL (0.6-1.3); POTASSIUM 3.7 mmol/L (3.5-4.5)
[2024-05-29] MEDS: CHOLECALCIFEROL 5,000 UNIT CAPSULE PO SCH (08:25)
[2024-05-29] MEDS: LOSARTAN 50 MG TABLET PO SCH (08:25)
[2024-05-29] MEDS: MULTIVITAMIN TABLET PO SCH (08:25)
[2024-05-29] MEDS: amLODIPine 5 MG TABLET PO SCH (08:25)
--- NOTE | 2024-05-29 13:49 | PROVIDER PROGRESS NOTE ---
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 --Start on DAPT with ASA/Plavix. --High intensity statin with Atorvastatin 40 mg daily. --MRI showing left frontal stroke. 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 Patient will need an outpatient referral to vascular surgery. --PT/OT consulted. --TTE on Wednesday. --Leukocytosis downtrended, likely reactive from CVA. (2) Hypertension Conclusion/Plan: --Continue amlodipine and losartan in the morning. Dispo: Pending TTE. PT/OT evaluation. Otherwise he is currently medically stable. Will need outpatient follow up with vascular surgery regarding his L ICA 90% stenosis. - Current Meds Current Meds: Current Medications Generic Name Dose Route Start Last Admin Trade Name Freq PRN Reason Stop Dose Admin Acetaminophen 650 mg 05/27/24 11:15 05/27/24 22:04 Acetaminophen 325 Mg Tablet PO 650 mg Q4HR PRN Administration Pain 1 to 4, or Fever Amlodipine Besylate 10 mg 05/29/24 09:00 05/29/24 08:25 Amlodipine 5 Mg Tablet PO 10 mg DAILY AURELIANO Administration Atorvastatin Calcium 40 mg 05/28/24 09:00 05/29/24 08:25 Atorvastatin 40 Mg Tablet PO 40 mg DAILY AURELIANO Administration Cholecalciferol 5,000 unit 05/29/24 09:00 05/29/24 08:25 Cholecalciferol 5,000 Unit Capsule PO 5,000 unit DAILY AURELIANO Administration Clopidogrel Bisulfate 75 mg 05/28/24 09:00 05/29/24 08:25 Clopidogrel 75 Mg Tablet PO 75 mg DAILY AURELIANO Administration Enoxaparin Sodium 40 mg 05/28/24 09:00 05/29/24 08:24 Enoxaparin 40 Mg/0.4 Ml Syringe SUBQ 40 mg DAILY AURELIANO Administration Losartan Potassium 50 mg 05/29/24 09:00 05/29/24 08:25 Losartan 50 Mg Tablet PO 50 mg DAILY AURELIANO Administration Multivitamins 1 tab 05/29/24 09:00 05/29/24 08:25 Multivitamin Tablet PO 1 tab DAILY AURELIANO Administration Sodium Chloride 10 ml 05/27/24 17:00 05/29/24 08:25 Sodium Chloride Flush 0.9% 10 Ml Syringe IVP 10 ml 0100,0900,1700 [facility] Administration - Lab Result Fish Bone Diagrams: 05/29/24 05:14 05/29/24 05:14 - Additional Planning My Orders: My Active Orders 05/29/24 07:05 Naproxen [Naprosyn] 250 mg PO DAILY PRN 05/29/24 09:00 Cholecalciferol [Vitamin D3] 5,000 unit PO DAILY Losartan [Cozaar] 50 mg PO DAILY Multivitamin [Theragran] 1 tab PO DAILY amLODIPine [Norvasc] 10 mg PO DAILY 05/30/24 05:00 BMP - BASIC METABOLIC PANEL [CHEM] DAILYLAB CBC [CBC - COMP BLD CT W/AUTO DIFF] [HEME] DAILYLAB 05/30/24 09:00 Aspirin EC [Ecotrin] 81 mg PO DAILY 05/31/24 05:00 BMP - BASIC METABOLIC PANEL [CHEM] DAILYLAB CBC [CBC - COMP BLD CT W/AUTO DIFF] [HEME] DAILYLAB 06/01/24 05:00 BMP - BASIC METABOLIC PANEL [CHEM] DAILYLAB CBC [CBC - COMP BLD CT W/AUTO DIFF] [HEME] DAILYLAB Subjective - Subjective Patient Reports: Feeling Better, Resting Comfortably, No Complaints Objective Vital Signs: Vital Signs - 24 hr 05/28/24 05/28/24 05/28/24 15:51 17:21 18:15 Temperature 37.2 C 36.5 C 37.1 C Heart Rate [ 86 96 100 Brachial] Respiratory 18 17 20 Rate Blood Pressure 156/85 H 155/88 H 168/84 H [Right Brachial artery] O2 Saturation 97 98 05/28/24 05/28/24 05/29/24 18:22 18:40 01:01 Temperature 37.0 C Heart Rate [ 97 96 Brachial] Respiratory 18 Rate Blood Pressure 165/93 H 158/82 H 131/89 H [Right Brachial artery] O2 Saturation 93 05/29/24 07:21 Temperature 37.2 C Heart Rate [ 91 Brachial] Respiratory 20 Rate Blood Pressure 133/85 H [Right Brachial artery] O2 Saturation 95 Oxygen O2 Source Room air I&O (Last 24 Hrs): Intake and Output Totals x24h 05/27/24 05/28/24 05/29/24 23:59 23:59 23:59 Intake Total 1070 1787 2040 Output Total 822 1359 3550 Balance 250 -5508 -230 General: Alert, Oriented x3, Cooperative, No acute distress Cardiovascular: Regular rate, Normal S1, Normal S2, No murmurs Respiratory: Chest non-tender, No respiratory distress, Breath sounds nml Abdomen: Normal bowel sounds, Soft, No tenderness, No hepatospenomegaly, No masses - Results Results: Laboratory Results WBC 5.6 x10^3/uL (4.8-10.8) 05/29/24 05:14 RBC 5.19 10^6/uL (4.70-6.10) 05/29/24 05:14 Hgb 15.8 g/dL (14.0-18.0) 05/29/24 05:14 Hct 46.1 % (42.0-52.0) 05/29/24 05:14 MCV 88.8 fL (80.0-94.0) 05/29/24 05:14 MCH 30.4 pg (27.0-31.0) 05/29/24 05:14 MCHC 34.3 g/dL (32.0-36.0) 05/29/24 05:14 RDW 13.1 % (12.0-15.0) 05/29/24 05:14 Plt Count 162 10^3/uL (130-450) 05/29/24 05:14 MPV 11.0 fL (7.4-11.4) 05/29/24 05:14 Neut # (Auto) 4.1 10^3/uL (1.5-6.6) 05/29/24 05:14 Lymph # (Auto) 0.7 10^3/uL (1.5-3.5) L 05/29/24 05:14 [place] # (Auto) 0.9 10^3/uL (0.0-1.0) 05/29/24 05:14 Eos # (Auto) 0.0 10^3/uL (0.0-0.7) 05/29/24 05:14 Baso # (Auto) 0.0 10^3/uL (0.0-0.1) 05/29/24 05:14 Absolute Nucleated RBC 0.00 x10^3/uL 05/29/24 05:14 Nucleated RBC % 0.0 /100WBC 05/29/24 05:14 Manual Slide Review Indicated 05/27/24 08:30 RBC Morph Micro Appear 1+ ANISOCYTOSIS (NORMAL) 05/27/24 08:30 PT 12.2 secs (9.9-12.6) 05/27/24 08:30 INR 1.1 (0.8-1.2) 05/27/24 08:30 Sodium 129 mmol/L (135-145) L 05/29/24 05:14 Potassium 3.7 mmol/L (3.5-4.5) 05/29/24 05:14 Chloride 100 mmol/L (101-111) L 05/29/24 05:14 Carbon Dioxide 22 mmol/L (21-32) 05/29/24 05:14 Anion Gap 7.0 (6-13) 05/29/24 05:14 BUN 16 mg/dL (6-20) 05/29/24 05:14 Creatinine 0.9 mg/dL (0.6-1.3) 05/29/24 05:14 Estimated GFR (MDRD) 83 (>89) L 05/29/24 05:14 Glucose 114 mg/dL (74-104) H 05/29/24 05:14 Estimat Average Glucose 131 mg/dL (70-100) H 05/27/24 08:30 Hemoglobin A1c % 6.2 % (4.27-6.07) H 05/27/24 08:30 Calcium 8.8 mg/dL (8.5-10.3) 05/29/24 05:14 Magnesium 1.8 mg/dL (1.7-2.3) 05/27/24 08:30 Total Bilirubin 1.2 mg/dL (0.2-1.0) H 05/27/24 08:30 AST 21 IU/L (10-42) 05/27/24 08:30 ALT 22 IU/L (10-60) 05/27/24 08:30 Alkaline Phosphatase 51 IU/L (42-121) 05/27/24 08:30 Total Protein 7.3 g/dL (6.4-8.9) 05/27/24 08:30 Albumin 4.5 g/dL (3.2-5.5) 05/27/24 08:30 Globulin 2.8 g/dL (2.1-4.2) 05/27/24 08:30 Albumin/Globulin Ratio 1.6 (1.0-2.2) 05/27/24 08:30 Triglycerides 93 mg/dL 05/28/24 04:35 Cholesterol 102 mg/dL (-200) 05/28/24 04:35 LDL Cholesterol, Calc 50 mg/dL (-129) 05/28/24 04:35 VLDL Cholesterol 19 mg/dL 05/28/24 04:35 HDL Cholesterol 33 mg/dL (60-) L 05/28/24 04:35 LDL/HDL Ratio 1.5 (<3.6) 05/28/24 04:35 Cholesterol/HDL Ratio 3.1 (<5.0) 05/28/24 04:35 Lipase 15 U/L (11-82) 05/27/24 08:30 Urine Color DARK YELLOW 05/27/24 13:45 Urine Clarity CLEAR (CLEAR) 05/27/24 13:45 Urine pH 7.0 PH (5.0-7.5) 05/27/24 13:45 Ur Specific [place] 1.010 (1.002-1.030) 05/27/24 13:45 Urine Protein NEGATIVE mg/dL (NEGATIVE) 05/27/24 13:45 Urine Glucose (UA) NEGATIVE mg/dL (NEGATIVE) 05/27/24 13:45 Urine Ketones TRACE mg/dL (NEGATIVE) 05/27/24 13:45 Urine Occult Blood NEGATIVE (NEGATIVE) 05/27/24 13:45 Urine Nitrite NEGATIVE (NEGATIVE) 05/27/24 13:45 Urine Bilirubin NEGATIVE (NEGATIVE) 05/27/24 13:45 Urine Urobilinogen 0.2 (NORMAL) E.U./dL (NORMAL) 05/27/24 13:45 Ur Leukocyte Esterase NEGATIVE (NEGATIVE) 05/27/24 13:45 Ur Microscopic Review NOT INDICATED 05/27/24 13:45 Urine Culture Comments NOT INDICATED 05/27/24 13:45 Nasal Adenovirus (PCR) NOT DETECTED 05/27/24 09:09 Nasal B. parapertussis DNA (PCR) NOT DETECTED 05/27/24 09:09 Nasal Coronavir 229E PCR NOT DETECTED 05/27/24 09:09 Nasal Coronavir HKU1 PCR NOT DETECTED 05/27/24 09:09 Nasal Coronavir NL63 PCR NOT DETECTED 05/27/24 09:09 Nasal Coronavir OC43 PCR NOT DETECTED 05/27/24 09:09 Nasal Enterovir/Rhinovir PCR NOT DETECTED 05/27/24 09:09 Nasal Influenza B PCR NOT DETECTED 05/27/24 09:09 Nasal Influenza A PCR NOT DETECTED 05/27/24 09:09 Nasal Parainfluen 1 PCR NOT DETECTED 05/27/24 09:09 Nasal Parainfluen 2 PCR NOT DETECTED 05/27/24 09:09 Nasal Parainfluen 3 PCR NOT DETECTED 05/27/24 09:09 Nasal Parainfluen 4 PCR NOT DETECTED 05/27/24 09:09 Nasal RSV (PCR) NOT DETECTED 05/27/24 09:09 Nasal B.pertussis DNA PCR NOT DETECTED 05/27/24 09:09 Nasal C.pneumoniae (PCR) NOT DETECTED 05/27/24 09:09 Dc Human Metapneumo PCR NOT DETECTED 05/27/24 09:09 Nasal M.pneumoniae (PCR) NOT DETECTED 05/27/24 09:09 Nasal SARS-CoV-2 (PCR) NOT DETECTED 05/27/24 09:09
[2024-05-30 05:59] LABS: BASOPHILS % (AUTO) 0.6 %; HCT - HEMATOCRIT 45.4 % (42.0-52.0); HGB - HEMOGLOBIN 15.3 g/dL (14.0-18.0); LYMPHOCYTES # (AUTO) 0.9 10^3/uL (1.5-3.5); LYMPHOCYTES % (AUTO) 13.8 %; MEAN CORPUSCULAR HEMOGLOBIN 29.6 pg (27.0-31.0); MEAN CORPUSCULAR HGB CONC 33.7 g/dL (32.0-36.0); MEAN CORPUSCULAR VOLUME 87.8 fL (80.0-94.0); MONOCYTES % (AUTO) 16.7 %; NEUTROPHILS # (AUTO) 4.2 10^3/uL (1.5-6.6); NEUTROPHILS % (AUTO) 68.4 %; PLT - PLATELET COUNT 184 10^3/uL (130-450); RED BLOOD COUNT 5.17 10^6/uL (4.70-6.10); RED CELL DISTRIBUTION WIDTH 13.2 % (12.0-15.0); WHITE BLOOD COUNT 6.2 x10^3/uL (4.8-10.8)
[2024-05-30 06:08] LABS: CALCIUM 8.4 mg/dL (8.5-10.3); CREATININE 1.1 mg/dL (0.6-1.3); POTASSIUM 3.9 mmol/L (3.5-4.5)
[2024-05-30] MEDS: ASPIRIN EC 81 MG TABLET PO SCH (09:24)
--- NOTE | 2024-05-30 12:45 | PROVIDER PROGRESS NOTE ---
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 --Start on DAPT with ASA/Plavix. --High intensity statin with Atorvastatin 40 mg daily. --MRI showing left frontal stroke. 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 Patient will need an outpatient referral to vascular surgery. --PT/OT consulted. --TTE showing LVEF 60-65%, grade 1 diastolic dysfunction. --Leukocytosis downtrended, likely reactive from CVA. (2) Hypertension Conclusion/Plan: --Continue amlodipine and losartan in the morning. Dispo: Otherwise he is currently medically stable. Will need outpatient follow up with vascular surgery regarding his L ICA 90% stenosis. Pending discharge to inpatient rehab, requires insurance authorization. Otherwise medically stable. - Current Meds Current Meds: Current Medications Generic Name Dose Route Start Last Admin Trade Name Freq PRN Reason Stop Dose Admin Acetaminophen 650 mg 05/27/24 11:15 05/27/24 22:04 Acetaminophen 325 Mg Tablet PO 650 mg Q4HR PRN Administration Pain 1 to 4, or Fever Amlodipine Besylate 10 mg 05/29/24 09:00 05/30/24 09:24 Amlodipine 5 Mg Tablet PO 10 mg DAILY AURELIANO Administration Aspirin 81 mg 05/30/24 09:00 05/30/24 09:24 Aspirin Ec 81 Mg Tablet PO 81 mg DAILY AURELIANO Administration Atorvastatin Calcium 40 mg 05/28/24 09:00 05/30/24 09:24 Atorvastatin 40 Mg Tablet PO 40 mg DAILY AURELIANO Administration Cholecalciferol 5,000 unit 05/29/24 09:00 05/30/24 09:24 Cholecalciferol 5,000 Unit Capsule PO 5,000 unit DAILY AURELIANO Administration Clopidogrel Bisulfate 75 mg 05/28/24 09:00 05/30/24 09:25 Clopidogrel 75 Mg Tablet PO 75 mg DAILY AURELIANO Administration Enoxaparin Sodium 40 mg 05/28/24 09:00 05/30/24 09:25 Enoxaparin 40 Mg/0.4 Ml Syringe SUBQ 40 mg DAILY AURELIANO Administration Losartan Potassium 50 mg 05/29/24 09:00 05/30/24 09:24 Losartan 50 Mg Tablet PO 50 mg DAILY AURELIANO Administration Multivitamins 1 tab 05/29/24 09:00 05/30/24 09:25 Multivitamin Tablet PO 1 tab DAILY AURELIANO Administration Sodium Chloride 10 ml 05/27/24 17:00 05/30/24 09:26 Sodium Chloride Flush 0.9% 10 Ml Syringe IVP Not Given 0100,0900,1700 AURELIANO - Lab Result Fish Bone Diagrams: 05/30/24 05:40 05/30/24 05:40 - Additional Planning My Orders: My Active Orders 05/30/24 09:00 Aspirin EC [Ecotrin] 81 mg PO DAILY 05/31/24 05:00 BMP - BASIC METABOLIC PANEL [CHEM] DAILYLAB CBC [CBC - COMP BLD CT W/AUTO DIFF] [HEME] DAILYLAB 06/01/24 05:00 BMP - BASIC METABOLIC PANEL [CHEM] DAILYLAB CBC [CBC - COMP BLD CT W/AUTO DIFF] [HEME] DAILYLAB Subjective - Subjective Patient Reports: Feeling Better, Resting Comfortably, No Complaints Objective Vital Signs: Vital Signs - 24 hr 05/29/24 05/29/24 05/29/24 14:20 16:00 23:47 Temperature 37.0 C 38.4 C H Heart Rate [ 87 92 Brachial] Heart Rate [ 93 Sitting] Heart Rate [ 103 H Standing] Heart Rate [ 83 Supine] Respiratory 22 16 Rate Blood Pressure [Left Brachial artery] Blood Pressure 120/76 147/75 H [Right Brachial artery] Blood Pressure 125/84 H [Sitting] Blood Pressure 141/91 H [Standing] Blood Pressure 160/98 H [Supine] O2 Saturation 94 95 O2 Saturation [ 96 Supine] 05/30/24 07:56 Temperature 37 C Heart Rate [ 91 Brachial] Heart Rate [ Sitting] Heart Rate [ Standing] Heart Rate [ Supine] Respiratory 16 Rate Blood Pressure 149/76 H [Left Brachial artery] Blood Pressure [Right Brachial artery] Blood Pressure [Sitting] Blood Pressure [Standing] Blood Pressure [Supine] O2 Saturation 95 O2 Saturation [ Supine] Oxygen O2 Source Room air I&O (Last 24 Hrs): Intake and Output Totals x24h 05/28/24 05/29/24 05/30/24 23:59 23:59 23:59 Intake Total 1897 6010 1080 Output Total 3638 9811 9731 Balance -0658 -560 -572 General: Alert, Oriented x3, Cooperative, No acute distress Cardiovascular: Regular rate, Normal S1, Normal S2, No murmurs Respiratory: Chest non-tender, No respiratory distress, Breath sounds nml - Results Results: Laboratory Results WBC 6.2 x10^3/uL (4.8-10.8) 05/30/24 05:40 RBC 5.17 10^6/uL (4.70-6.10) 05/30/24 05:40 Hgb 15.3 g/dL (14.0-18.0) 05/30/24 05:40 Hct 45.4 % (42.0-52.0) 05/30/24 05:40 MCV 87.8 fL (80.0-94.0) 05/30/24 05:40 MCH 29.6 pg (27.0-31.0) 05/30/24 05:40 MCHC 33.7 g/dL (32.0-36.0) 05/30/24 05:40 RDW 13.2 % (12.0-15.0) 05/30/24 05:40 Plt Count 184 10^3/uL (130-450) 05/30/24 05:40 MPV 11.0 fL (7.4-11.4) 05/30/24 05:40 Neut # (Auto) 4.2 10^3/uL (1.5-6.6) 05/30/24 05:40 Lymph # (Auto) 0.9 10^3/uL (1.5-3.5) L 05/30/24 05:40 [place] # (Auto) 1.0 10^3/uL (0.0-1.0) 05/30/24 05:40 Eos # (Auto) 0.0 10^3/uL (0.0-0.7) 05/30/24 05:40 Baso # (Auto) 0.0 10^3/uL (0.0-0.1) 05/30/24 05:40 Absolute Nucleated RBC 0.00 x10^3/uL 05/30/24 05:40 Nucleated RBC % 0.0 /100WBC 05/30/24 05:40 Manual Slide Review Indicated 05/27/24 08:30 RBC Morph Micro Appear 1+ ANISOCYTOSIS (NORMAL) 05/27/24 08:30 PT 12.2 secs (9.9-12.6) 05/27/24 08:30 INR 1.1 (0.8-1.2) 05/27/24 08:30 Sodium 129 mmol/L (135-145) L 05/30/24 05:40 Potassium 3.9 mmol/L (3.5-4.5) 05/30/24 05:40 Chloride 99 mmol/L (101-111) L 05/30/24 05:40 Carbon Dioxide 22 mmol/L (21-32) 05/30/24 05:40 Anion Gap 8.0 (6-13) 05/30/24 05:40 BUN 18 mg/dL (6-20) 05/30/24 05:40 Creatinine 1.1 mg/dL (0.6-1.3) 05/30/24 05:40 Estimated GFR (MDRD) 66 (>89) L 05/30/24 05:40 Glucose 112 mg/dL (74-104) H 05/30/24 05:40 Estimat Average Glucose 131 mg/dL (70-100) H 05/27/24 08:30 Hemoglobin A1c % 6.2 % (4.27-6.07) H 05/27/24 08:30 Calcium 8.4 mg/dL (8.5-10.3) L 05/30/24 05:40 Magnesium 1.8 mg/dL (1.7-2.3) 05/27/24 08:30 Total Bilirubin 1.2 mg/dL (0.2-1.0) H 05/27/24 08:30 AST 21 IU/L (10-42) 05/27/24 08:30 ALT 22 IU/L (10-60) 05/27/24 08:30 Alkaline Phosphatase 51 IU/L (42-121) 05/27/24 08:30 Total Protein 7.3 g/dL (6.4-8.9) 05/27/24 08:30 Albumin 4.5 g/dL (3.2-5.5) 05/27/24 08:30 Globulin 2.8 g/dL (2.1-4.2) 05/27/24 08:30 Albumin/Globulin Ratio 1.6 (1.0-2.2) 05/27/24 08:30 Triglycerides 93 mg/dL 05/28/24 04:35 Cholesterol 102 mg/dL (-200) 05/28/24 04:35 LDL Cholesterol, Calc 50 mg/dL (-129) 05/28/24 04:35 VLDL Cholesterol 19 mg/dL 05/28/24 04:35 HDL Cholesterol 33 mg/dL (60-) L 05/28/24 04:35 LDL/HDL Ratio 1.5 (<3.6) 05/28/24 04:35 Cholesterol/HDL Ratio 3.1 (<5.0) 05/28/24 04:35 Lipase 15 U/L (11-82) 05/27/24 08:30 Urine Color DARK YELLOW 05/27/24 13:45 Urine Clarity CLEAR (CLEAR) 05/27/24 13:45 Urine pH 7.0 PH (5.0-7.5) 05/27/24 13:45 Ur Specific [place] 1.010 (1.002-1.030) 05/27/24 13:45 Urine Protein NEGATIVE mg/dL (NEGATIVE) 05/27/24 13:45 Urine Glucose (UA) NEGATIVE mg/dL (NEGATIVE) 05/27/24 13:45 Urine Ketones TRACE mg/dL (NEGATIVE) 05/27/24 13:45 Urine Occult Blood NEGATIVE (NEGATIVE) 05/27/24 13:45 Urine Nitrite NEGATIVE (NEGATIVE) 05/27/24 13:45 Urine Bilirubin NEGATIVE (NEGATIVE) 05/27/24 13:45 Urine Urobilinogen 0.2 (NORMAL) E.U./dL (NORMAL) 05/27/24 13:45 Ur Leukocyte Esterase NEGATIVE (NEGATIVE) 05/27/24 13:45 Ur Microscopic Review NOT INDICATED 05/27/24 13:45 Urine Culture Comments NOT INDICATED 05/27/24 13:45 Nasal Adenovirus (PCR) NOT DETECTED 05/27/24 09:09 Nasal B. parapertussis DNA (PCR) NOT DETECTED 05/27/24 09:09 Nasal Coronavir 229E PCR NOT DETECTED 05/27/24 09:09 Nasal Coronavir HKU1 PCR NOT DETECTED 05/27/24 09:09 Nasal Coronavir NL63 PCR NOT DETECTED 05/27/24 09:09 Nasal Coronavir OC43 PCR NOT DETECTED 05/27/24 09:09 Nasal Enterovir/Rhinovir PCR NOT DETECTED 05/27/24 09:09 Nasal Influenza B PCR NOT DETECTED 05/27/24 09:09 Nasal Influenza A PCR NOT DETECTED 05/27/24 09:09 Nasal Parainfluen 1 PCR NOT DETECTED 05/27/24 09:09 Nasal Parainfluen 2 PCR NOT DETECTED 05/27/24 09:09 Nasal Parainfluen 3 PCR NOT DETECTED 05/27/24 09:09 Nasal Parainfluen 4 PCR NOT DETECTED 05/27/24 09:09 Nasal RSV (PCR) NOT DETECTED 05/27/24 09:09 Nasal B.pertussis DNA PCR NOT DETECTED 05/27/24 09:09 Nasal C.pneumoniae (PCR) NOT DETECTED 05/27/24 09:09 Dc Human Metapneumo PCR NOT DETECTED 05/27/24 09:09 Nasal M.pneumoniae (PCR) NOT DETECTED 05/27/24 09:09 Nasal SARS-CoV-2 (PCR) NOT DETECTED 05/27/24 09:09
[2024-05-30] MEDS: NAPROXEN 250 MG TABLET PO PRN (18:48)
[2024-05-31 06:13] LABS: BASOPHILS # (AUTO) 0.1 10^3/uL (0.0-0.1); BASOPHILS % (AUTO) 0.8 %; EOSINOPHILS # (AUTO) 0.1 10^3/uL (0.0-0.7); EOSINOPHILS % (AUTO) 1.1 %; HCT - HEMATOCRIT 45.5 % (42.0-52.0); HGB - HEMOGLOBIN 15.6 g/dL (14.0-18.0); LYMPHOCYTES # (AUTO) 1.2 10^3/uL (1.5-3.5); LYMPHOCYTES % (AUTO) 16.2 %; MEAN CORPUSCULAR HEMOGLOBIN 30.1 pg (27.0-31.0); MEAN CORPUSCULAR HGB CONC 34.3 g/dL (32.0-36.0); MEAN CORPUSCULAR VOLUME 87.7 fL (80.0-94.0); MONOCYTES # (AUTO) 1.4 10^3/uL (0.0-1.0); MONOCYTES % (AUTO) 18.9 %; NEUTROPHILS # (AUTO) 4.6 10^3/uL (1.5-6.6); NEUTROPHILS % (AUTO) 62.2 %; PLT - PLATELET COUNT 182 10^3/uL (130-450); RED BLOOD COUNT 5.19 10^6/uL (4.70-6.10); RED CELL DISTRIBUTION WIDTH 13.1 % (12.0-15.0); WHITE BLOOD COUNT 7.4 x10^3/uL (4.8-10.8)
[2024-05-31 06:31] LABS: CALCIUM 8.5 mg/dL (8.5-10.3); CREATININE 1.1 mg/dL (0.6-1.3); POTASSIUM 3.7 mmol/L (3.5-4.5)
--- NOTE | 2024-05-31 13:37 | PROVIDER PROGRESS NOTE ---
Subjective - Prog Note Date Prog Note Date: 05/31/24 Prog Note Time: 13:35 - Subjective Pt reports feeling: Improved, No change Subjective: The patient was admitted with an acute CVA. He has residual right hemiparesis and is working hard with physical therapy. He is scheduled to go to subacute rehabilitation tomorrow. Today he denies fever or chills. No chest pain, shortness of breath or cough. No nausea vomiting or diarrhea. No urinary complaints. He is able to move his right leg and can lift it off the bed. He still has more difficulty with his right arm but it is slowly improving. Current Medications - Current Medications Current Medications: Tylenol 650 mg p.o. every 4 hours as needed Amlodipine 10 mg daily Aspirin 81 mg daily Atorvastatin 40 mg daily Vitamin D3 5000 units daily Plavix 75 mg daily Lovenox 40 mg subcu daily Losartan 50 mg daily Multivitamin daily and Naproxen 250 mg p.o. twice daily as needed Ondansetron 4 mg IV or ODT every 6 hours as needed nausea and vomiting Objective - Vital Signs/Intake & Output Reviewed Vital Signs: Yes Vital Signs: Vital Signs x48h Temp Pulse Resp BP Pulse Ox 05/31/24 07:59 36.5 C 81 16 128/69 93 Intake & Output: Intake & Output 05/28/24 05/29/24 05/30/24 05/31/24 23:59 23:59 23:59 23:59 Intake Total 1897 2830 1616 695 Output Total 2945 [address] [place] [phone] - Objective General Appearance: positive: No acute distress, Alert Eyes Bilateral: positive: Normal inspection ENT: positive: ENT inspection nml Neck: positive: Nml inspection Respiratory: positive: No respiratory distress, Breath sounds nml. negative: Wheezes, Rales, Rhonchi Cardiovascular: positive: Regular rate & rhythm, No murmur, No gallop. negative: Friction rub Abdomen: positive: Non-tender, No organomegaly, Nml bowel sounds, No distention Skin: positive: Color nml, No rash, Warm, Dry Extremities: positive: Non-tender Neurologic/Psychiatric: positive: Oriented x3, Other (Residual right hemiparesis) - Lab Results Fish Bones: 05/31/24 06:03 05/31/24 06:03 Other Labs: Lab Results x24hrs 05/31/24 05/31/24 Range/Units 06:03 06:03 WBC 7.4 (4.8-10.8) x10^3/uL RBC 5.19 (4.70-6.10) 10^6/uL Hgb 15.6 (14.0-18.0) g/dL Hct 45.5 (42.0-52.0) % MCV 87.7 (80.0-94.0) fL MCH 30.1 (27.0-31.0) pg MCHC 34.3 (32.0-36.0) g/dL RDW 13.1 (12.0-15.0) % Plt Count 182 (130-450) 10^3/uL MPV 10.0 (7.4-11.4) fL Neut # (Auto) 4.6 (1.5-6.6) 10^3/uL Lymph # (Auto) 1.2 L (1.5-3.5) 10^3/uL [place] # (Auto) 1.4 H (0.0-1.0) 10^3/uL Eos # (Auto) 0.1 (0.0-0.7) 10^3/uL Baso # (Auto) 0.1 (0.0-0.1) 10^3/uL Absolute Nucleated RBC 0.00 x10^3/uL Nucleated RBC % 0.0 /100WBC Sodium 132 L (135-145) mmol/L Potassium 3.7 (3.5-4.5) mmol/L Chloride 102 (101-111) mmol/L Carbon Dioxide 21 (21-32) mmol/L Anion Gap 9.0 (6-13) BUN 22 H (6-20) mg/dL Creatinine 1.1 (0.6-1.3) mg/dL Estimated GFR (MDRD) 66 L (>89) Glucose 107 H (74-104) mg/dL Calcium 8.5 (8.5-10.3) mg/dL ABX Reporting Has patient been on IV antibiotics over the past 48 hours?: No Sepsis Event Note (H) - Evaluation Current Stage of Sepsis: Ruled out Assessment/Plan - Problem List (1) Acute CVA (cerebrovascular accident) Impression: Continue aspirin and plavix. Continue atorvastatin. He will continue physical therapy and Occupational Therapy. He is scheduled to go to subacute rehabilitation tomorrow. (2) Right hemiparesis Impression: Plan as above (3) Bilateral carotid artery stenosis Impression: He will need outpatient evaluation by CT surgery (4) Chronic diastolic heart failure Impression: Quiescent. This was an incidental finding on echocardiogram (5) Pyoderma gangrenosum Impression: The patient takes Remicade infusions as an outpatient (6) Hypertension Impression: Continue home regimen (7) Hyponatremia Impression: Chronic and stable (8) Hyperglycemia Impression: Likely reactive to his acute CVA Disposition: The patient has been accepted to subacute rehabilitation and I am tentatively planning on discharging him in the morning. Time spent:35 minutes
[2024-05-31] MEDS: NAPROXEN 250 MG TABLET PO PRN (18:04)
[2024-06-01 07:15] LABS: BASOPHILS % (AUTO) 0.9 %; EOSINOPHILS % (AUTO) 3.3 %; HGB - HEMOGLOBIN 15.6 g/dL (14.0-18.0); LYMPHOCYTES % (AUTO) 30.9 %; MEAN CORPUSCULAR HEMOGLOBIN 29.9 pg (27.0-31.0); MEAN CORPUSCULAR HGB CONC 33.9 g/dL (32.0-36.0); MEAN CORPUSCULAR VOLUME 88.3 fL (80.0-94.0); MEAN PLATELET VOLUME 10.3 fL (7.4-11.4); MONOCYTES % (AUTO) 18.6 %; NEUTROPHILS % (AUTO) 44.7 %; PLT - PLATELET COUNT 213 10^3/uL (130-450); RED BLOOD COUNT 5.21 10^6/uL (4.70-6.10); RED CELL DISTRIBUTION WIDTH 13.2 % (12.0-15.0); WHITE BLOOD COUNT 6.3 x10^3/uL (4.8-10.8)
--- NOTE | 2024-06-01 07:20 | Discharge Plan ---
"Discharge Plan for SNF / [facility] - Discharge Plan And Transition Orders Problem Reviewed?: Yes Disposition: 03 SNF DC/Xfer Condition: Good Allergies and Adverse Reactions: Allergies Allergy/AdvReac Type Severity Reaction Status Date / Time diphenhydramine AdvReac Anxiety Verified 05/27/24 08:42 Health Concerns: The patient was admitted with an acute CVA. During his workup he was found to have bilateral carotid artery stenosis. He will need referral to vascular surgery as soon as possible when he gets out of the hospital. Care Goals: The goals are to return to his prior level of functioning if possible Assessment: The patient is awake alert and oriented x 3 this morning. He is stable to transfer to rehab today. - SNF / CUSTODIAL Transition Orders Admit to (Facility): [facility] Discharge Diagnosis: 1. Acute CVA The patient will continue aspirin Plavix and atorvastatin. He will be dis charged to rehabilitation today to continue working with physical therapy and Occupational Therapy 2. Right hemiparesis This is improving. He has gained back most of the function in his right leg but still has some deficits in his right arm although they are improving. 3. Bilateral carotid artery stenosis He will need outpatient evaluation by CT surgery. Continue aspirin, Plavix and statin medication 4. Chronic diastolic heart failure Incidentally noted on echocardiogram. Quiescent. 5. Pyoderma gangrenosum The patient will resume his Remicade infusions as an outpatient. No issues d uring this hospitalization 6. Hypertension The patient will resume his home regimen 7. Hyponatremia Chronic and stable 8. Hyperglycemia Improved. Likely reactive to his acute CVA Medicare Certification Statement: I certify that Post Hospital custodial care is medically necessary on a continuing basis for any of the conditions for which she/he is receiving care during hospitalization. Notify PCP of admission and forward orders to primary provider for signature. Weight on admission and: Weekly Other Notification Orders: Call PCP immediately if patient develops dyspnea, chest pain/tightness or edema. Also notify PCP immediately if the patient develops any signs of an acute CVA House Bowel Program: Yes Additional Bowel Program Orders: If no BM after 2 days, nurse may give M.O.M. 30ml PO PRN and/or ducolax Supp 1 RI and/or SILVIO 250mg P.O., and/or senna 1-2 tabs PO. On day 3 nurse may give repeat above order until residents constipation is resolved. Annual Influenza Vaccine (between Jul 16 and February 12): Yes Two-step PPD per [facility] [phone] or approved exception documents: Yes Medication Orders: PLEASE REFER TO THE DISCHARGE MEDICATION LIST. - Medications New Prescriptions: Cholecalciferol (Vitamin D3) [D3-5000] 125 mcg PO DAILY #30 cap Aspirin EC [Ecotrin] 81 mg PO DAILY #30 tab Atorvastatin [Lipitor] 80 mg PO DAILY #60 tab Losartan Potassium 50 mg PO DAILY #60 tab Naproxen [Naprosyn] 250 mg PO BID PRN #60 tab PRN Reason: Moderate Pain (Level 4-6) amLODIPine [Norvasc] 10 mg PO DAILY #60 tab Clopidogrel [Plavix] 75 mg PO DAILY #30 tab - Diet Type: Geriatric Texture: Regular Liquids: Thin May have monthly special meal: Yes - Therapies | Activity Therapy: Evaluation | Treat if indicated: PT, OT Rehabilitation Potential: Maximize functional status, Return to independent living Activity: No Restrictions Weight Bearing: Full Weight Assistance Devices: Walker Follow Up: The patient will need to follow-up with his primary care physician when he is released from rehab. He will need outpatient vascular surgery follow-up as soon as possible as well"
[2024-06-01 07:21] LABS: ABNORMAL LYMPHS % (MANUAL) 0 %
--- NOTE | 2024-06-01 07:30 | DISCHARGE SUMMARY ---
Discharge Summary Admit Date: 05/27/24 Discharge Date: 06/01/24 Discharging Provider: Jina Ho PA-C Code Status: Attempt Resuscitation Condition at Discharge: Good Discharge Disposition: 03 SNF DC/Xfer - DIAGNOSES Discharge Diagnoses with Status of Each Condition: 1. Acute CVA The patient will continue aspirin Plavix and atorvastatin. He will be discharged to rehabilitation today to continue working with physical therapy and Occupational Therapy 2. Right hemiparesis This is improving. He has gained back most of the function in his right leg but still has some deficits in his right arm although they are improving. 3. Bilateral carotid artery stenosis He will need outpatient evaluation by CT surgery. Continue aspirin, Plavix and statin medication 4. Chronic diastolic heart failure Incidentally noted on echocardiogram. Quiescent. 5. Pyoderma gangrenosum The patient will resume his Remicade infusions as an outpatient. No issues during this hospitalization 6. Hypertension The patient will resume his home regimen 7. Hyponatremia Chronic and stable 8. Hyperglycemia Improved. Likely reactive to his acute CVA - HPI History of Present Illness: From the admission HP: Patient is a 73-year-old male with a past medical history of pyogenic gangrenosum, hypertension who presented to the ED due to right upper and lower extremity weakness and possible facial droop. A CT/CTA was performed which showed evidence of moderate atherosclerotic disease on the bilateral carotid bifurcation and proximal ICA with 90% stenosis of the left and 60% stenosis of the right. This was reviewed by neurology who recommended against tPA and stated that patient will need outpatient follow-up with vascular surgery. They recommended dual antiplatelet therapy. During my evaluation patient stated that his left leg weakness was improving however he continues to have right arm flaccid paralysis. Patient denies any history of cardiac or pulmonary disease. He is a non-smoker. He stated he is a full code. He is on infliximab every 8 weeks for his pyogenic gangrenosum. - HOSPITAL COURSE Hospital Course: The patient was admitted to the hospital. He had an MRI of the brain which revealed a 7 mm acute infarct involving the deep white matter of the left frontal lobe. 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 The patient had a 2D echocardiogram which revealed mild diastolic dysfunction but otherwise was unremarkable. The patient was placed on aspirin, Plavix and a statin medication. He was evaluated by physical therapy and Occupational Therapy. He initially had dense right hemiparesis however that has greatly improved and he has almost near normal function of his right leg at this point although he still has some significant deficits in his right arm however much improved since the time of admission. The patient and family have decided to pursue rehabilitation at discharge. He was seen on the day of discharge and is stable for transfer to rehab this morning. - ALLERGIES Allergies/Adverse Reactions: Allergies Allergy/AdvReac Type Severity Reaction Status Date / Time diphenhydramine AdvReac Anxiety Verified 05/27/24 08:42 - MEDICATIONS Home Medications: Ambulatory Orders Medication Instructions Recorded Confirmed Multivitamin [Multi-Vitamin Daily] 1 each PO DAILY 11/16/13 05/28/24 inFLIXimab [Remicade] 1 vial IV MAINTENANCE.IV 03/26/22 05/28/24 Aspirin EC [Ecotrin] 81 mg PO DAILY #30 tab 06/01/24 Atorvastatin [Lipitor] 80 mg PO DAILY #60 tab 06/01/24 Cholecalciferol (Vitamin D3) 125 mcg PO DAILY #30 cap 06/01/24 [D3-5000] Clopidogrel [Plavix] 75 mg PO DAILY #30 tab 06/01/24 Losartan Potassium 50 mg PO DAILY #60 tab 06/01/24 Naproxen [Naprosyn] 250 mg PO BID PRN #60 tab 06/01/24 amLODIPine [Norvasc] 10 mg PO DAILY #60 tab 06/01/24 - PHYSICAL EXAM AT DISCHARGE General Appearance: positive: No acute distress, Alert Eyes Bilateral: positive: Normal inspection ENT: positive: ENT inspection nml Neck: positive: Nml inspection Respiratory: positive: Chest non-tender, No respiratory distress. negative: Wheezes, Rales, Rhonchi Cardiovascular: positive: Regular rate & rhythm, No murmur, No gallop. negative: Friction rub Abdomen: positive: Non-tender, Nml bowel sounds. negative: Tenderness, Guarding , Rebound Skin: positive: Color nml, No rash, Warm, Dry Extremities: positive: Non-tender, Full ROM Neurologic/Psychiatric: positive: Oriented x3, CN's nml (2-12) - LABS Result Diagrams: 06/01/24 07:04 05/31/24 06:03 - SEPSIS Current Stage of Sepsis: Ruled out - FOLLOW UP Follow Up: The patient will follow-up with his primary care physician as soon as he is released from rehab. He will need vascular surgery evaluation as soon as possible after discharge. He will need a referral from his primary care physician - TIME SPENT Time Spent in Discharge (Minutes): 45
[2024-06-01 07:32] LABS: CALCIUM 8.7 mg/dL (8.5-10.3); MAGNESIUM 2.1 mg/dL (1.7-2.3)
[2024-06-01 07:37] LABS: BAND NEUTROPHILS % (MANUAL) 14 %; DIFFERENTIAL COMMENT MANUAL DIFFERENTIAL; EOSINOPHILS # (MANUAL) 0.1 10^3/uL (0-0.7); LYMPHOCYTES # (MANUAL) 1.8 10^3/uL (1.5-3.5); LYMPHOCYTES % (MANUAL) 18 %; MONOCYTES # (MANUAL) 1.3 10^3/uL (0.0-1.0); NEUTROPHILS # (MANUAL) 3.2 10^3/uL (1.5-6.6); RBC MORPHOLOGY (MULTIPLE) 3+ ANISOCYTOSIS (NORMAL); REACTIVE LYMPHS % (MANUAL) 10 %
[2024-06-01 07:53] VITALS: BP 121/65; O2SAT 96
== END 2024-06-01 09:25 | DRG 65 ==
LOC: ED 08:10 → MS3 11:15
PROVIDERS: ADMIT Family Medicine; ATTEND Physician Assistant
DX: R29.898 Other symptoms and signs involving the musculoskeletal system (principal); I63.9 Cerebral infarction, unspecified; I10 Essential (primary) hypertension; E87.1 Hypo-osmolality and hyponatremia; I45.10 Unspecified right bundle-branch block; G81.91 Hemiplegia, unspecified affecting right dominant side; I50.32 Chronic diastolic (congestive) heart failure; L88 Pyoderma gangrenosum; I11.0 Hypertensive heart disease with heart failure; I65.23 Occlusion and stenosis of bilateral carotid arteries; R73.9 Hyperglycemia, unspecified; I65.02 Occlusion and stenosis of left vertebral artery; D72.829 Elevated white blood cell count, unspecified
CPT/HCPCS: 36415; 70450; 70496; 70498; 70551; 80048; 80053; 80061; 81003; 83036; 83690; 83735; 85025; 85610; 87040; 87633; 93005; 93307; 97112; 97163; 97167; 97530; 99285; A9270; J1650; Q9967; 81001; 83721; 87086